=== PATIENT | female | born 2000 | race Caucasian/White ===

== ENCOUNTER → 2020-08-10 12:07 | Outpatient (BNVA) | payer OTHER, SELFPAY | PROVIDERS: Family Provider Electrodiagnostic Medicine; PCP Electrodiagnostic Medicine; Visit Provider Obstetrics & Gynecology | DX: Z12.4 Encounter for screening for malignant neoplasm of cervix (principal) | CPT/HCPCS: 88175 ==

== ENCOUNTER → 2021-01-05 07:48 | Outpatient (BNVA) | payer OTHER, SELFPAY | PROVIDERS: Family Provider Electrodiagnostic Medicine; PCP Electrodiagnostic Medicine; Visit Provider Family Medicine Adult Medicine | DX: J02.9 Acute pharyngitis, unspecified (principal); J30.9 Allergic rhinitis, unspecified | CPT/HCPCS: 87071; 87880 ==

== ENCOUNTER → 2021-08-03 08:51 | Outpatient (BNVA) | payer OTHER, SELFPAY | PROVIDERS: Family Provider Electrodiagnostic Medicine; PCP Electrodiagnostic Medicine; Visit Provider Obstetrics & Gynecology | DX: R10.2 Pelvic and perineal pain (principal) | CPT/HCPCS: 76830 ==

== ENCOUNTER → 2021-12-05 16:33 | Outpatient (BNVA) | payer OTHER, SELFPAY | PROVIDERS: Family Provider Electrodiagnostic Medicine; PCP Electrodiagnostic Medicine; Visit Provider Obstetrics & Gynecology | DX: N90.89 Other specified noninflammatory disorders of vulva and perineum (principal) | CPT/HCPCS: 88305 ==

== ENCOUNTER 2021-12-29 08:00 | Outpatient (CLI) | payer OTHER, SELFPAY ==
--- NOTE | 2021-12-29 08:00 | US_ITS ---
WS: [id number] ULTRASOUND BILATERAL BREAST, limited HISTORY: N64.4 - Mastodynia COMPARISON: None available. TECHNIQUE: 2-D and Doppler. Bilateral breast ultrasound is performed in the area of pain as directed by the patient. This is pred ominantly in the anterior breast around the nipples. No mass is identified or shadowing. There are a few mildly prominent ducts but no intraluminal mass and no significant dilatation. US/US breast BI limited* [id number] IMPRESSION: BI-RADS: 2-Benign FOLLOW-UP: See Report No additional imaging follow-up necessary. Negative bilateral breast ultrasound .
== END 2021-12-29 08:01 | disposition home or self-care (01) ==
PROVIDERS: PCP Electrodiagnostic Medicine; Visit Provider Obstetrics & Gynecology
DX: N64.4 Mastodynia (principal)
CPT/HCPCS: 76642

== ENCOUNTER 2022-05-31 16:27 | Emergency (ER) | payer OTHER, SELFPAY ==
[2022-05-31 16:29] VITALS: BP 130/78; PULSE 86; RESP 16; TEMP 36.6; O2SAT 100; BMI 31.3
--- NOTE | 2022-05-31 16:46 | W.ED.DIZZY ---
HPI - Dizziness General: Chief Complaint: Dizziness Stated Complaint: Sharp pains in back of head, Nausea Time Seen by Provider: 05/31/22 16:45 PFSH ED PFSH: Medical History GERD (gastroesophageal reflux disease) Symptoms resolved since cholecystectomy. No pertinent past medical history Denies diabetes, asthma, hypertension, seizures, DVT/PE PCP: Dr. Caro Surgical History S/P appendectomy Laparoscopic procedure performed by Dr. Nunez in July 2018 S/P cholecystectomy Laparoscopic procedure performed by Dr. Nunez in July 2018 Family History Grandmother Diabetes paternal and maternal Hypertension maternal Grandfather Diabetes maternal Heart disease maternal Hypertension maternal Thyroid condition maternal Mother Melanoma Family/Other Stroke maternal great grandmother Denies family history of Colon cancer Ovarian cancer Breast cancer Uterine cancer Course Vital Signs: Vital signs: Vital Signs Temperature 97.9 F 05/31/22 16:29 Pulse Rate 86 05/31/22 16:29 Respiratory Rate 16 05/31/22 16:29 Blood Pressure 130/78 05/31/22 16:29 Pulse Oximetry 100 05/31/22 16:29 Oxygen Delivery Me thod 05/31/22 16:29 MDM - Dizziness Lab Data : 05/31/22 16:10 05/31/22 16:10 Discharge Plan Discharge Condition: Stable Prescriptions: No Action prenat.vits,celestino,psr-zgpl-vjscj Tablet 1 tab PO DAILY [id number] 600 mg calcium- 800 unit-50 mg tablet 1 tab PO DAILY norethindrone-e.estradiol-iron [ FE 09/07 (28)] 1 mg-20 mcg (21)/75 mg (7) tablet 1 tab PO DAILY Qty: 84 3RF Referrals: Umesh Caro DO [Primary Care Provider] - Coding Level of Care Code ED Application Security Specialist for Chg Fwbert
--- NOTE | 2022-05-31 17:05 | CTR_ITS ---
PROCEDURE INFORMATION: Exam: CT Head Without Contrast Exam date and time: 05/31/2022 6:06 PM Age: 21 years old Clinical indication: Pain; Dizziness and visual disturbance; Headache not specified; Additional info: Light-headedness TECHNIQUE: Imaging protocol: Computed tomography of the head without contrast. Radiation optimization: All CT scans at this facility use at least one of these dose optimization techniques: automated exposure control; mA and/or kV adjustment per patient size (includes targeted exams where dose is matched to clinical indication); or iterative reconstruction. COMPARISON: No relevant prior studies available. RADIATION DOSE METRICS: Total DLP (mGy-cm): 1262.88 FINDINGS: Brain: Normal. No hemorrhage. Unremarkable white matter. No mass effect. Cerebral ventricles: No ventriculomegaly. Paranasal sinuses: Visualized sinuses are unremarkable. No fluid levels. Mastoid air cells: Visualized mastoid air cells are well aerated. Bones/joints: Unremarkable. No acute fracture. Soft tissues: Unremarkable. CT/CT head wo con* [id number] IMPRESSION: No acute intracranial abnormality.
--- NOTE | 2022-05-31 17:05 | ECG_ITS ---
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 Measurements Intervals [place] Rate: 74 P: 10 OR: 151 QRS: 65 QRSD: 85 T: 40 QT: 372 QTc: 414 Interpretive Statements SINUS RHYTHM Compared to ECG 11/18/2017 20:08:27 No significant changes Electronically Signed On 05-31-2022 20:47:44 CDT by Karely Oscar M.D. [id number]
--- NOTE | 2022-05-31 17:16 | ED_ITS ---
HPI - General Adult General: Chief complaint: Dizziness Stated complaint: Sharp pains in back of head, Nausea Time Seen by Provider: 05/31/22 16:45 History of Present Illness: Patient is a 21-year-old female without any significant past medical history who presents to the emergency room for evaluation of headache nausea, blurriness of vision and near syncope. She tells me that she was at work today around 2 PM when she suddenly developed sharp pain on both sides the back of her head. Since then, patient has had paresthesia in her toes. Patient denies any back pain. Patient says that she also has associated blurry vision. Each time she experienced this sharp pain in the back of her head, pain only last for 30 seconds at a time. The pain is associated with bilateral blurriness of vision and near syncope sensation. Patient denies any LOC. Patient says that she has had more than 7 episodes of feeling like she is about to pass out. Patient denies any fall or injuries recently. No family history of cerebral aneurysm. Patient denies any chest pain, shortness breath palpitation, melena hematochezia. Patient has no acute complaints. Patient tells me that she has been eating well denies any recent decreased p.o. intake or diarrhea. Patient has no prior history of headache. Onset: 2pm Duration:ongoing Location:home Severity:moderate Associated symptoms: Reports nausea; Deny chest pain, dyspnea, rash, palpitations or vomiting Review of Systems Const: Denies: fever(s) or chills Eyes: Reports: blurry vision ENMT: Denies: mouth pain Card: Denies: chest pain or palpitations Resp: Denies: dyspnea or non-productive cough GI: Reports: nausea; Denies: abdominal pain, vomiting or diarrhea : Denies: dysuria Musc: Denies: extremity pain Skin/Breast: Denies: rash or new lesions Neuro: Reports: other (+headache/ +light-headedness/+parethesia in the toes); Denies: weakness in extremities Psych: Reports: other (Normal mood) Joaquin/Lymph: Denies: easy bruising [facility] ED PFSH: Medical History GERD (gastroesophageal reflux disease) Symptoms resolved since cholecystectomy. No pertinent past medical history Denies diabetes, asthma, hypertension, seizures, DVT/PE PCP: Dr. Caro Surgical History S/P appendectomy Laparoscopic procedure performed by Dr. Nunez in July 2018 S/P cholecystectomy Laparoscopic procedure performed by Dr. Nunez in July 2018 Family History Grandmother Diabetes paternal and maternal Hypertension maternal Grandfather Diabetes maternal Heart disease maternal Hypertension maternal Thyroid condition maternal Mother Melanoma Family/Other Stroke maternal great grandmother Denies family history of Colon cancer Ovarian cancer Breast cancer Uterine cancer Physical Exam Const: COMMON NORMALS: alert HENMT: COMMON NORMALS: atraumatic HEAD & SCALP: atraumatic MOUTH: moist mucous membranes not abnormal Eye: COMMON NORMALS: EOMs intact bilaterally and conjunctivae normal CONJUNCTIVA: Yes conjunctivae normal Neck/C-Spine: COMMON NORMALS: full ROM and supple Resp: COMMON NORMALS: normal respiratory effort and clear to auscultation bilaterally AUSCULTATION: clear to auscultation bilaterally Cardio: COMMON NORMALS: regular rate RATE: regular rate GI: COMMON NORMALS: Soft to palpation and non-tender PALPATION: Yes Soft to palpation Extremity: COMMON NORMALS: full ROM Neuro: SENSORIUM/ORIENTATION: Yes alert MOTOR EXAM: No Abnormal motor strength present and Other motor observations present (no focal motor deficits) OTHER: Mental status? Awake, alert, and oriented to self, year, month, location, and situation.? Following simple axial and appendicular commands.? Has appropriate fund of knowledge, comprehension, and insight.? Able to recall and understands pertinent aspects of medical history and current treatment status.? ? Language? Speech is fluent without word-finding difficulties.? Intact naming, expression, bariatric coordinator, and repetition.? ? Cranial nerves? 2,3,4,6: PERRL, EOMI with no nystagmus. 5: Intact sensation to light touch, symmetric? 7: Smile symmetrical, no facial droop.? 8: Hearing grossly intact.? 9,10: Normal palate movement.? 11: Normal strength in trapezius bilaterally 12: Tongue protrudes midline.? ? Motor examination? Normal bulk & tone. Strength as follows (R/L): Delts (5/5), Biceps (5/5), Triceps (5/5), Wrist ext (5/5), hip flexors (5/5), plantarflexors (5/5), dorsiflexors (5/5). Sensation? Light Touch: Grossly intact and equal in upper and lower extremities bilaterally? Romberg: Negative.? Distal joint position sense intact ? Coordination? Bhvfff-ny-hskn-finger movements intact without dysmetria or past-pointing.? Rapid fingertaps: preserved amplitude without decriment.? No tremor, myoclonus or truncal ataxia.? ? Gait/stance? Steady, normal narrow base gait with appropriate arm swing and turning.? Tandem gait without hesitation or loss of balance. Psych: COMMON NORMALS: speech normal SPEECH: Yes normal speech MOOD & AFFECT: Yes euthymic mood Course Vital Signs: Vital signs: Vital Signs Temperature 97.9 F 05/31/22 16:29 Pulse Rate 81 05/31/22 20:28 Respiratory Rate 16 05/31/22 20:28 Blood Pressure 119/75 05/31/22 20:28 Pulse Oximetry 100 05/31/22 20:28 Oxygen Delivery Me thod 05/31/22 19:11 MDM - General Adult Medical Decision Making 31-year-old female presents emergency room with multiple complaints today. Hemodynamically stable neuro exam is intact. White 11.1. CT is negative for any acute finding. Patient was observed in the emergency room reports feeling symptomatically improved. I doubt that this is subarachnoid bleed given the fact the patient has not had worse headache of his life, headaches associate with other symptoms, has no family history of aneurysm. Disposition: Discharge. Patient counseled regarding diagnostic impression, treatment plan. Patient given ED strict return precautions to return for continuation, worsening, or development of new symptoms. Instructed to f/u w/ PCP regarding symptoms today. Patient verbalized understanding. Lab Data : 05/31/22 16:10 05/31/22 16:[address] 05/31/22 17:05 IMPRESSION: No acute intracranial abnormality. Laboratory Results WBC 11.1 10^3/uL (4.0-10.0) H 05/31/22 16:10 RBC 4.81 10^6/uL (4.1-5.3) 05/31/22 16:10 Hgb 14.3 g/dL (11.5-15.3) 05/31/22 16:10 Hct 43.2 % (37.0-47.0) 05/31/22 16:10 MCV 89.8 fl (81-99) 05/31/22 16:10 MCH 29.7 pg (28.0-34.0) 05/31/22 16:10 MCHC 33.1 g/dL (30.0-36.0) 05/31/22 16:10 RDW 12.6 % (12.1-15.1) 05/31/22 16:10 Plt Count 402 10^3/cmm (130-400) H 05/31/22 16:10 MPV 9.9 fL (7.4-10.4) 05/31/22 16:10 Neut % (Auto) 68.4 % 05/31/22 16:10 Lymph % (Auto) 22.7 % 05/31/22 16:10 [place] % (Auto) 6.7 % 05/31/22 16:10 Eos % (Auto) 1.4 % 05/31/22 16:10 Baso % (Auto) 0.4 % 05/31/22 16:10 Neut # (Auto) 7.62 10^3/uL (1.8-7.7) 05/31/22 16:10 Lymph # (Auto) 2.5 10^3/uL (0.8-4.8) 05/31/22 16:10 [place] # (Auto) 0.8 10^3/uL (0.2-0.9) 05/31/22 16:10 Eos # (Auto) 0.2 10^3/uL (0.0-0.8) 05/31/22 16:10 Baso # (Auto) 0.0 10^3/uL (0.0-0.1) 05/31/22 16:10 Nucleated RBC % (auto) 0 % 05/31/22 16:10 Nucleated RBCs # 0.0 /100WBC 05/31/22 16:10 Sodium 140 mmol/L (136-145) 05/31/22 16:10 Potassium 3.5 mmol/L (3.5-5.1) 05/31/22 16:10 Chloride 102 mmol/L (98-107) 05/31/22 16:10 Carbon Dioxide 28 mmol/L (22-29) 05/31/22 16:10 Anion Gap 13.5 (5-19) 05/31/22 16:10 BUN 13 mg/dL (6-20) 05/31/22 16:10 Creatinine 0.5 mg/dL (0.5-0.9) 05/31/22 16:10 GFR Calculation 152.9 mL/min (90-130) H 05/31/22 16:10 Glucose 96 mg/dL (65-115) 05/31/22 16:10 Calculated Osmolality 290 mOsm/kg (285-295) 05/31/22 16:10 Calcium 9.4 mg/dL (8.5-10.5) 05/31/22 16:10 Magnesium 2.0 mg/dL (1.7-2.3) 05/31/22 16:10 Discharge Plan Discharge Patient Disposition: Home Clinical Impression: Headache, Light headedness, Nausea & vomiting Condition: Stable Prescriptions: New acetaminophen 500 mg tablet 500 mg PO Q6H PRN (Reason: pain) 5 Days Qty: 20 0RF ondansetron 4 mg tablet,disintegrating 4 mg PO TID PRN (Reason: nausea and vomiting) 4 Days Qty: 12 0RF No Action prenat.vits,celestino,pze-cyeo-gfsil Tablet 1 tab PO DAILY [id number] 600 mg calcium- 800 unit-50 mg tablet 1 tab PO DAILY norethindrone-e.estradiol-iron [June FE 09/07 (28)] 1 mg-20 mcg (21)/75 mg (7) tablet 1 tab PO DAILY Qty: 84 3RF Discharge Orders: Discharge ED (Routine); Ordered 05/31/22 Ordered By: Fede Lee Referrals: Umesh Caro DO [Primary Care Provider] - Discharge Diet: Advance as tolerated Discharge Activity: Increase activity as tolerated Activity Restrictions/Additional Instructions: Please come back to the emergency room you have any fever chills, worsening headache, focal weakness, nausea/vomiting, inability to perform daily activity, or any new concerning complaints. 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
[2022-05-31 17:19] LABS: Basophils % 0.4 %; Eosinophils # 0.2 10^3/uL (0.0-0.8); Eosinophils % 1.4 %; Hematocrit 43.2 % (37.0-47.0); Hemoglobin 14.3 g/dL (11.5-15.3); Lymphocytes # 2.5 10^3/uL (0.8-4.8); Lymphocytes % 22.7 %; Mean Corpuscular HGB Conc 33.1 g/dL (30.0-36.0); Mean Corpuscular Hemoglobin 29.7 pg (28.0-34.0); Mean Corpuscular Volume 89.8 fl (81-99); Mean Platelet Volume 9.9 fL (7.4-10.4); Monocytes # 0.8 10^3/uL (0.2-0.9); Monocytes % 6.7 %; Neutrophils # 7.62 10^3/uL (1.8-7.7); Neutrophils % 68.4 %; Nucleated Red Blood Cells % 0 %; Platelet Count 402 10^3/cmm (130-400); Red Blood Count 4.81 10^6/uL (4.1-5.3); Red Cell Distribution Width 12.6 % (12.1-15.1); White Blood Count 11.1 10^3/uL (4.0-10.0)
[2022-05-31 17:41] VITALS: BP 134/63
[2022-05-31 17:50] LABS: Anion Gap 13.5 (5-19); Blood Urea Nitrogen 13 mg/dL (6-20); Calcium 9.4 mg/dL (8.5-10.5); Carbon Dioxide 28 mmol/L (22-29); Chloride 102 mmol/L (98-107); Glomerular Filtration Rate 152.9 mL/min (90-130); Glucose 96 mg/dL (65-115); Osmolality Calculated 290 mOsm/kg (285-295); Potassium 3.5 mmol/L (3.5-5.1); Sodium 140 mmol/L (136-145)
[2022-05-31 18:33] VITALS: BP 121/58
--- NOTE | 2022-05-31 18:56 | PC.NURSE ---
THIS NURSE TOOK OVER CARE AT 1900 FROM DAVID JAMES. REPORT GIVEN THAT PER PROVIDER PATIENT IS NOT TO RECEIVE MEDICATION AT THIS TIME.
[2022-05-31 19:05] VITALS: BP 121/68; BP 129/68; BP 139/80
[2022-05-31 19:11] VITALS: BP 121/58; PULSE 86; RESP 16; O2SAT 100
[2022-05-31 20:28] VITALS: BP 119/75; PULSE 81; RESP 16; O2SAT 100
== END 2022-05-31 20:29 | disposition home or self-care (01) ==
PROVIDERS: Emergency Provider Emergency Medicine; PCP Electrodiagnostic Medicine
DX: R51.9 Headache, unspecified (principal); R42 Dizziness and giddiness; R11.2 Nausea with vomiting, unspecified
CPT/HCPCS: 36415; 70450; 80048; 83735; 85025; 93005; 99285

== ENCOUNTER → 2023-06-05 15:50 | Outpatient (BNVA) | payer OTHER, SELFPAY | PROVIDERS: PCP Electrodiagnostic Medicine; Visit Provider Nurse Practitioner Women's Health | DX: Z01.419 Encounter for gynecological examination (general) (routine) without abnormal findings (principal); N92.6 Irregular menstruation, unspecified; N76.0 Acute vaginitis | CPT/HCPCS: 82306; 84146; 84402; 84439; 84443; 84481; 84702; 88175 ==

== ENCOUNTER → 2023-06-12 10:50 | Outpatient (BNVA) | payer OTHER, SELFPAY | PROVIDERS: PCP Electrodiagnostic Medicine; Visit Provider Nurse Practitioner Women's Health | DX: N92.6 Irregular menstruation, unspecified (principal) | CPT/HCPCS: 76830 ==

== ENCOUNTER → 2023-06-20 08:26 | Outpatient (BNVA) | payer SELFPAY | PROVIDERS: PCP Electrodiagnostic Medicine; Visit Provider Nurse Practitioner Women's Health | DX: E28.2 Polycystic ovarian syndrome (principal) | CPT/HCPCS: 84144 ==